=== PATIENT | female | born 1960 | race Caucasian/White ===

== ENCOUNTER 2017-09-11 06:21 | Emergency (ER) | payer OTHER ==
[~2017-09-11] VITALS: Ht 167.6 cm; Wt 72.6 kg
[~2017-09-11 06:21] MED LIST: CITALOPRAM HYDR20 MG PO; DELTASONE5 MG PO; LEVOTHYROXIN0.125 M1 PO; OMEPRAZOLE40 MG PO; PEPCID 20MG TAB20 MG PO; PREDNICOT20 MG PO; PRILOSEC40 MG PO; REGLAN10 MG PO; SINGULAIR10 MG PO; SYMBICORT 160/41 PUF
[2017-09-11 06:34] VITALS: BP 113/74
--- NOTE | 2017-09-11 06:40 | ED GENERAL ADULT ---
History of Present Illness General Chief Complaint: Allergy Symptoms Stated Complaint: ALLERGY REACTIONS Source: patient Exam Limitations: no limitations Vital Signs & Intake/Output Vital Signs & Intake/Output Vital Signs Date Time Temp Pulse Resp B/P B/P Pulse O2 O2 Flow FiO2 Mean Ox Delivery Rate 09/11 0637 97 Room Air 09/11 0634 97.6 85 18 113/74 97 Room Air Allergies Coded Allergies: MDX - Morphine (MORPHINE) (HIVES 02/23/13) MDX - SULFA (sulfonamide) (SULFA (SULFONAMIDE)) (HIVES 02/23/13) albuterol (AFIB 09/11/17) Reconcile Medications Budesonide/Formoterol Fumara (Symbicort 160-4.5 Mcg Inhaler) (Unknown Strength) PUF (Unknown Dose) BID BREATHING PROBLEMS (Reported) Citalopram Hydrobromide (Citalopram HBr) 20 MG TABLET 40 MG PO DAILY BIPOLAR (Reported) Famotidine (Pepcid 20MG Tab) 20 MG TAB 1 TAB PO BID GERD Hydroxyzine Pamoate 50 MG CAPSULE 1 CAP PO 4 TIMES/DAY ALLERGIC REACTION Levothyroxine Sodium 0.125 MG TAB 0.125 MG PO DAILY AC THYROID (Reported) METOCLOPRAMIDE HCL (Reglan) 10 MG TABLET 1 TAB PO TID gerd 30 minutes before meals and bedtime Montelukast Sodium (Singulair) 10 MG TABLET 1 TAB PO DAILY ALLERGYS (Reported ) Omeprazole 40 MG CAPSULE.DR 1 CAP PO DAILY GI (Reported) Omeprazole (Prilosec) 40 MG ECC 1 TAB PO DAILY GERD Prednisone (Prednicot) 20 MG TAB 3 TAB PO DAILY ASTHMA Prednisone (Deltasone) 5 MG TAB 4 TAB PO BID ASTHMA Triage Note: PT FROM HOME C/O MED REACTION?? PT STATES [place]ST [place] AND GOT A RASH ON PTS RFA TO WHAT PT THOUGHT WAS [place]. PT USED MANY LOTIONS AND METHODS TO GET RID OF [place]. PT THEN COULD NOT TAKE THE ITCHING AND WENT TO WALK IN WHERE SHE WAS GIVEN A MEDROL DOSE PACK. PT HAS COMPLETED ONE DAY OF PACK. PT ALSO STATES SHE IS ON PREDNISONE FROM HER PCP. PT APPEARS TO ER WITH FLUSHED COLORED FACE CHEST AND ABD. PTS AIRWAY PATENT. PTS VSS, 02 ON RA 97%. PT IN NO DISTRESS. Triage Nurses Notes Reviewed? yes Onset: Gradual Duration: day(s): Timing: recent history Injury Environment: home Severity: mild, moderate Modifying Factors: Improves With: medication. Associated Symptoms: ITCHING, REDNESS HPI: 57 YO woman presents with red itchy rash on face and right arm. She shares that she had been working outside, a few days later, she developed an itchy, serpiginous rash on right forearm. She went to an urgent care center, got a medrol dose pack. She started the first dose last night. This morning, she noted redness and itchiness on her face, without wheezing, tongue or lip swelling. She took benadryl several times without effect. She has no dyspnea, chest pain, shortness of breath. She is otherwise well. Past History Travel History Traveled to [place] past 21 day No Medical History Any Pertinent Medical History? see below for history Cardiovascular: hyperlipidemia Respiratory: asthma Psychiatric: depression Endocrine: diabetes History of MRSA: No History of VRE: No History of CDIFF: No Surgical History Surgical History: none Psychosocial History Who do you live with Patient/Self Services at Home None, Oxygen What is your primary language Setsw[place] Tobacco Use: Quit >30 days ago Family History Family History, If Any: Patient adopted Hx Contributory? No Review of Systems Review of Systems Constitutional: Reports: no symptoms. EENTM: Reports: no symptoms. Respiratory: Reports: no symptoms. Cardiovascular: Reports: no symptoms. GI: Reports: no symptoms. Genitourinary: Reports: no symptoms. Musculoskeletal: Reports: no symptoms. Skin: Reports: no symptoms. Neurological/Psychological: Reports: no symptoms. Hematologic/Endocrine: Reports: no symptoms. Immunologic/Allergic: Reports: no symptoms. All Other Systems: Reviewed and Negative Physical Exam Physical Exam General Appearance: well developed/nourished, no apparent distress Head: atraumatic, urticaria on cheeks, forehead, face Eyes: Bilateral: normal appearance. Ears, Nose, Throat: normal pharynx, normal ENT inspection Neck: normal inspection, supple, full range of motion Respiratory: normal breath sounds, chest non-tender, no respiratory distress, quiet respiration, lungs clear Cardiovascular: regular rate/rhythm Gastrointestinal: normal bowel sounds, soft, non-tender Back: normal inspection, normal range of motion Extremities: right forearm with serpiginous urticarial rash, c/w [place] dermatitis. there is also a 3x3 are on left foot of urticarial rash. no sign of infection or tenderness to palpation. Neurologic/Psych: no motor/sensory deficits, awake, alert, oriented x 3 Skin: intact, normal color, warm/dry, urticaria on face, contact dermatitis on right arm. Core Measures ACS in differential dx? No CVA/TIA Diagnosis: No Sepsis Present: No Sepsis Focused Exam Completed? No Progress Differential Diagnoses I considered the following diagnoses in my evaluation of the patient: contact dermatitis vs systematic dermatitis vs other Plan of Care: Current Medications Sig/Debby Start time Last Medication Dose Stop Time Status Admin Diphenhydramine HCl 25 MG ONCE ONE 09/11 699 AC (Benadryl) 09/11 700 Methylprednisolone 125 MG ONCE ONE 09/11 699 AC (Solu Medrol) 09/11 700 Initial ED EKG: none Departure Departure Disposition: HOME OR SELF CARE Condition: Stable Clinical Impression Primary Impression: Contact dermatitis Secondary Impressions: Urticaria Referrals: Patient Has No Primary Care Dr (PCP/Family) Departure Forms: Customer Survey General Discharge Information Prescriptions: Current Visit Scripts Hydroxyzine Pamoate 1 CAP PO 4 TIMES/DAY #90 CAP Ref 1 Critical Care Note Critical Care Note Critical Care Time: non-applicable
[2017-09-11] MEDS ORDERED: HYDROXYZINE PAM50 M1 PO (06:48)
== END 2017-09-11 07:15 ==
LOC: ERH 06:21
DX: L25.9 Unspecified contact dermatitis, unspecified cause (principal); L50.9 Urticaria, unspecified
CPT/HCPCS: 96374; 96375; J1200; J2930